=== PATIENT | male | born 1950 | race Caucasian/White ===

== ENCOUNTER 2017-10-08 08:32 | Inpatient (IN) | payer MEDICARE ==
[~2017-10-08] VITALS: Ht 190.5 cm; Wt 101.0 kg
[2017-10-08] MEDS ORDERED: SODIUM CHLORIDE FLUSH 10ML SYR IVF ONE (10:00)
[2017-10-08] MEDS ORDERED: ALBU18HF INH (10:03)
[2017-10-08] MEDS ORDERED: FLUT1DIS3 INH (10:03)
[2017-10-08 10:12] LABS: BASOPHILS # (AUTO) 0.05 x10^3/uL (0-0.1); BASOPHILS % (AUTO) 1 % (0-1); EOSINOPHILS # (AUTO) 0.15 x10^3/uL (0-0.4); EOSINOPHILS % (AUTO) 2 % (1-7); LYMPHOCYTES # (AUTO) 1.06 x10^3/uL (1-3.4); LYMPHOCYTES % (AUTO) 14 % (22-44); MD NO; MEAN CORPUSCULAR HEMOGLOBIN 30.7 pg (27.5-34.5); MEAN CORPUSCULAR HGB CONC 33.2 g/dL (33.2-36.2); MEAN CORPUSCULAR VOLUME 92.3 fL (81-97); MONOCYTES # (AUTO) 0.53 x10^3/uL (0.2-0.8); MONOCYTES % (AUTO) 7 % (2-9); NEUTROPHILS % (AUTO) 77 % (42-75); PLATELET COUNT 195 x10^3/uL (130-400); RED BLOOD COUNT 5.91 x10^6/uL (4.38-5.82)
[2017-10-08 10:22] LABS: INTERNATIONAL NORMALIZED RATIO 1.34 (0.93-1.1)
[2017-10-08 10:25] LABS: ALANINE AMINOTRANSFERASE 31 U/L (12-78); ANION GAP 10 mmol/L (5-15); CALCIUM 8.2 mg/dL (8.5-10.1); CHLORIDE 105 mmol/L (98-107); CREATININE 1.43 mg/dL (0.7-1.3)
[2017-10-08 10:30] LABS: ALKALINE PHOSPHATASE 181 U/L (45-117); BILIRUBIN,TOTAL 2.9 mg/dL (0.2-1.0); FREE T4 (FREE THYROXINE) 1.42 ng/dL (0.76-1.46); TOTAL PROTEIN 6.7 g/dL (6.4-8.2); TROPONIN I < 0.015 ng/mL (0.000-0.045)
[2017-10-08 10:43] LABS: PROTHROMBIN TIME 13.9 Seconds (9.6-11.5)
[2017-10-08] MEDS ORDERED: FUROSEMIDE 40 MG/4 ML ONE (12:27)
[2017-10-08] MEDS ORDERED: FUROSEMIDE 40 MG/4 ML IVPush ONE (12:30)
[2017-10-08] MEDS ORDERED: ONDANSETRON ODT 4 MG PO PRN (15:00)
[2017-10-08] MEDS ORDERED: ONDANSETRON 2MG/ML, 2ML IVPush PRN (15:00)
[2017-10-08] MEDS: INSULIN ASPART 100 UNITS/ML, PEN SQ-INSULIN SCH ×2 (16:00→20:34)
[2017-10-08 16:03] LABS: CHLORIDE,URINE RANDOM 109 mmol/L; CULTURE INDICATED? NO; MICROSCOPIC NOT IND; POTASSIUM,URINE RANDOM 22 mmol/L; SODIUM,URINE RANDOM 95 mmol/L
[2017-10-08 16:08] VITALS: BP 137/83
[2017-10-08] MEDS ORDERED: LIDOCAINE 1%, 20ML ONE (16:19)
[2017-10-08 16:31] LABS: HEMOGLOBIN A1C 7.4 % (4.2-6.3)
[2017-10-08 16:34] LABS: FREE T4 (FREE THYROXINE) 1.35 ng/dL (0.76-1.46); THYROID STIMULATING HORMONE 3.14 mIU/L (0.358-3.740)
[2017-10-08] MEDS: FUROSEMIDE 40 MG/4 ML IV SCH (17:27)
[2017-10-08 18:19] LABS: CELLS COUNTED 41
[2017-10-08] MEDS: HEPARIN 5,000 UNITS/ML, 1ML SQ SCH (18:19)
[2017-10-08 20:02] VITALS: BP 120/66
[2017-10-08] MEDS ORDERED: ALBUTEROL SULFATE 2.5 MG/3 ML NPPB PRN (22:00)
[2017-10-09 02:30] VITALS: BP 134/87
[2017-10-09] MEDS: HEPARIN 5,000 UNITS/ML, 1ML SQ SCH ×3 (02:54→20:45)
[2017-10-09 06:28] LABS: BASOPHILS # (AUTO) 0.03 x10^3/uL (0-0.1); BASOPHILS % (AUTO) 1 % (0-1); EOSINOPHILS # (AUTO) 0.22 x10^3/uL (0-0.4); EOSINOPHILS % (AUTO) 3 % (1-7); LYMPHOCYTES # (AUTO) 1.42 x10^3/uL (1-3.4); LYMPHOCYTES % (AUTO) 19 % (22-44); MD NO; MEAN CORPUSCULAR HEMOGLOBIN 31.1 pg (27.5-34.5); MEAN CORPUSCULAR HGB CONC 33.3 g/dL (33.2-36.2); MEAN CORPUSCULAR VOLUME 93.3 fL (81-97); MEAN PLATELET VOLUME 9.5 fL (7.4-10.4); MONOCYTES # (AUTO) 0.65 x10^3/uL (0.2-0.8); MONOCYTES % (AUTO) 9 % (2-9); NEUTROPHILS # (AUTO) 5.28 x10^3/uL (1.8-6.8); NEUTROPHILS % (AUTO) 70 % (42-75); PLATELET COUNT 183 x10^3/uL (130-400); RED BLOOD COUNT 5.82 x10^6/uL (4.38-5.82); RED CELL DISTRIBUTION WIDTH 14.9 % (9.4-14.8)
[2017-10-09 06:33] LABS: INTERNATIONAL NORMALIZED RATIO 1.36 (0.93-1.1); PROTHROMBIN TIME 14.1 Seconds (9.6-11.5)
[2017-10-09 06:39] LABS: ANION GAP 10 mmol/L (5-15); CALCIUM 8.4 mg/dL (8.5-10.1); CHLORIDE 105 mmol/L (98-107)
[2017-10-09 06:43] LABS: ALANINE AMINOTRANSFERASE 30 U/L (12-78); ALKALINE PHOSPHATASE 187 U/L (45-117); BILIRUBIN,TOTAL 2.6 mg/dL (0.2-1.0); CHOL/HDL RATIO 3.7; CHOLESTEROL, TOTAL 127 mg/dL (140-239); CREATININE 1.58 mg/dL (0.7-1.3); HDL CHOL % 27 % (26-37); HDL CHOLESTEROL (DIRECT) 34 mg/dL (40-60); LDL CHOLESTEROL,CALCULATED 77 mg/dL (54-169); LDL/HDL RATIO 2.3 (0.5-3.0); TOTAL PROTEIN 7.1 g/dL (6.4-8.2); TRIGLYCERIDES 79 mg/dL (50-200); VLDL CHOLESTEROL 16 mg/dL (0-25)
[2017-10-09] MEDS: INSULIN ASPART 100 UNITS/ML, PEN SQ-INSULIN SCH ×4 (07:00→20:42)
[2017-10-09 07:47] VITALS: BP 111/73
[2017-10-09] MEDS: POTASSIUM CHLORIDE 20 MEQ TAB.ER.PRT PO SCH (10:17)
[2017-10-09] MEDS: FUROSEMIDE 40 MG/4 ML IV SCH ×3 (10:18→22:48)
[2017-10-09 13:05] VITALS: BP 100/64
[2017-10-09 19:50] VITALS: BP 115/70
[2017-10-09] MEDS: SPIRONOLACTONE 50 MG TABLET PO SCH (20:45)
[2017-10-10 02:58] VITALS: BP 105/68
[2017-10-10] MEDS: HEPARIN 5,000 UNITS/ML, 1ML SQ SCH ×3 (05:11→22:00)
[2017-10-10] MEDS: INSULIN ASPART 100 UNITS/ML, PEN SQ-INSULIN SCH ×4 (07:00→21:00)
[2017-10-10 07:20] VITALS: BP 148/98
[2017-10-10 07:41] LABS: BASOPHILS # (AUTO) 0.07 x10^3/uL (0-0.1); BASOPHILS % (AUTO) 1 % (0-1); EOSINOPHILS # (AUTO) 0.33 x10^3/uL (0-0.4); EOSINOPHILS % (AUTO) 5 % (1-7); LYMPHOCYTES # (AUTO) 1.36 x10^3/uL (1-3.4); LYMPHOCYTES % (AUTO) 19 % (22-44); MD NO; MEAN CORPUSCULAR HGB CONC 33.4 g/dL (33.2-36.2); MEAN PLATELET VOLUME 8.9 fL (7.4-10.4); MONOCYTES # (AUTO) 0.65 x10^3/uL (0.2-0.8); MONOCYTES % (AUTO) 9 % (2-9); NEUTROPHILS # (AUTO) 4.76 x10^3/uL (1.8-6.8); NEUTROPHILS % (AUTO) 66 % (42-75); PLATELET COUNT 184 x10^3/uL (130-400); RED BLOOD COUNT 5.92 x10^6/uL (4.38-5.82); RED CELL DISTRIBUTION WIDTH 15.2 % (9.4-14.8)
[2017-10-10 07:53] LABS: ALANINE AMINOTRANSFERASE 32 U/L (12-78); ALBUMIN 3.1 g/dL (3.4-5.0); ANION GAP 9 mmol/L (5-15); CALCIUM 9.2 mg/dL (8.5-10.1); CHLORIDE 102 mmol/L (98-107); CREATININE 1.66 mg/dL (0.7-1.3)
[2017-10-10 07:56] LABS: ALKALINE PHOSPHATASE 212 U/L (45-117); BILIRUBIN,TOTAL 1.9 mg/dL (0.2-1.0); TOTAL PROTEIN 7.3 g/dL (6.4-8.2)
[2017-10-10] MEDS: SPIRONOLACTONE 50 MG TABLET PO SCH ×2 (09:43→21:59)
[2017-10-10] MEDS: POTASSIUM CHLORIDE 20 MEQ TAB.ER.PRT PO SCH (09:43)
[2017-10-10 14:17] VITALS: BP 117/73
[2017-10-10 19:04] VITALS: BP 131/68
[2017-10-10] MEDS ORDERED: FLUT9.9S NAS (21:13)
[2017-10-10] MEDS: FUROSEMIDE 40 MG/4 ML IV SCH (21:59)
[2017-10-11 01:21] VITALS: BP 143/75
[2017-10-11] MEDS: HEPARIN 5,000 UNITS/ML, 1ML SQ SCH ×3 (06:14→20:48)
[2017-10-11] MEDS: INSULIN ASPART 100 UNITS/ML, PEN SQ-INSULIN SCH (07:00)
[2017-10-11] MEDS: FUROSEMIDE 40 MG/4 ML IV SCH ×3 (08:04→20:48)
[2017-10-11] MEDS: SPIRONOLACTONE 50 MG TABLET PO SCH ×2 (08:05→20:47)
[2017-10-11] MEDS: POTASSIUM CHLORIDE 20 MEQ TAB.ER.PRT PO SCH (08:05)
[2017-10-11 08:58] VITALS: BP 123/75
[2017-10-11 14:43] VITALS: BP 109/70
[2017-10-11 20:56] VITALS: BP 120/73
[2017-10-12 01:07] VITALS: BP 114/80
[2017-10-12] MEDS: HEPARIN 5,000 UNITS/ML, 1ML SQ SCH ×3 (05:01→20:38)
[2017-10-12 05:33] LABS: BASOPHILS # (AUTO) 0.04 x10^3/uL (0-0.1); BASOPHILS % (AUTO) 1 % (0-1); EOSINOPHILS # (AUTO) 0.37 x10^3/uL (0-0.4); EOSINOPHILS % (AUTO) 5 % (1-7); LYMPHOCYTES # (AUTO) 1.25 x10^3/uL (1-3.4); LYMPHOCYTES % (AUTO) 17 % (22-44); MD NO; MEAN CORPUSCULAR HEMOGLOBIN 30.7 pg (27.5-34.5); MEAN CORPUSCULAR VOLUME 93.3 fL (81-97); MEAN PLATELET VOLUME 9.3 fL (7.4-10.4); MONOCYTES # (AUTO) 0.68 x10^3/uL (0.2-0.8); MONOCYTES % (AUTO) 9 % (2-9); NEUTROPHILS # (AUTO) 4.97 x10^3/uL (1.8-6.8); NEUTROPHILS % (AUTO) 68 % (42-75); PLATELET COUNT 196 x10^3/uL (130-400); RED BLOOD COUNT 5.71 x10^6/uL (4.38-5.82); RED CELL DISTRIBUTION WIDTH 14.8 % (9.4-14.8)
[2017-10-12 05:39] LABS: CHLORIDE 101 mmol/L (98-107)
[2017-10-12 05:46] LABS: ALANINE AMINOTRANSFERASE 30 U/L (12-78); ALKALINE PHOSPHATASE 201 U/L (45-117); ANION GAP 8 mmol/L (5-15); BILIRUBIN,TOTAL 2.4 mg/dL (0.2-1.0); CALCIUM 8.6 mg/dL (8.5-10.1); CREATININE 1.62 mg/dL (0.7-1.3); TOTAL PROTEIN 7.1 g/dL (6.4-8.2)
[2017-10-12 09:24] VITALS: BP 106/70
[2017-10-12] MEDS: FUROSEMIDE 40 MG/4 ML IV SCH ×3 (09:53→20:38)
[2017-10-12] MEDS: SPIRONOLACTONE 50 MG TABLET PO SCH ×2 (09:53→20:38)
[2017-10-12] MEDS: POTASSIUM CHLORIDE 20 MEQ TAB.ER.PRT PO SCH (09:53)
[2017-10-12 16:14] VITALS: BP 127/84
[2017-10-12 20:53] VITALS: BP 132/91
[2017-10-13 01:37] VITALS: BP 149/97
[2017-10-13] MEDS: HEPARIN 5,000 UNITS/ML, 1ML SQ SCH ×2 (04:17→13:00)
[2017-10-13 05:09] LABS: BASOPHILS # (AUTO) 0.07 x10^3/uL (0-0.1); BASOPHILS % (AUTO) 1 % (0-1); EOSINOPHILS # (AUTO) 0.27 x10^3/uL (0-0.4); EOSINOPHILS % (AUTO) 4 % (1-7); LYMPHOCYTES # (AUTO) 1.29 x10^3/uL (1-3.4); LYMPHOCYTES % (AUTO) 17 % (22-44); MD NO; MEAN CORPUSCULAR HEMOGLOBIN 31.1 pg (27.5-34.5); MEAN CORPUSCULAR HGB CONC 33.4 g/dL (33.2-36.2); MEAN CORPUSCULAR VOLUME 93.1 fL (81-97); MEAN PLATELET VOLUME 9.5 fL (7.4-10.4); MONOCYTES # (AUTO) 0.69 x10^3/uL (0.2-0.8); MONOCYTES % (AUTO) 9 % (2-9); NEUTROPHILS # (AUTO) 5.52 x10^3/uL (1.8-6.8); NEUTROPHILS % (AUTO) 71 % (42-75); PLATELET COUNT 170 x10^3/uL (130-400); RED BLOOD COUNT 5.68 x10^6/uL (4.38-5.82); RED CELL DISTRIBUTION WIDTH 14.9 % (9.4-14.8)
[2017-10-13 05:20] LABS: CHLORIDE 101 mmol/L (98-107)
[2017-10-13 05:29] LABS: ALBUMIN 2.9 g/dL (3.4-5.0); ANION GAP 9 mmol/L (5-15); CALCIUM 8.9 mg/dL (8.5-10.1); CREATININE 1.68 mg/dL (0.7-1.3)
[2017-10-13 07:58] VITALS: BP 125/77
[2017-10-13] MEDS ORDERED: FUROSEMIDE 40 MG/4 ML IV SCH (09:00)
[2017-10-13] MEDS: POTASSIUM CHLORIDE 20 MEQ TAB.ER.PRT PO SCH (10:01)
[2017-10-13] MEDS: SPIRONOLACTONE 50 MG TABLET PO SCH (10:01)
[2017-10-13] MEDS ORDERED: ASPI-621 PO (12:05)
[2017-10-13] MEDS ORDERED: SPIR50TA PO (12:05)
[2017-10-13] MEDS ORDERED: ATOR20TA9 PO (12:05)
[2017-10-13] MEDS ORDERED: FURO40TA6 PO (12:05)
[2017-10-13] MEDS ORDERED: POTA20PA25 PO (12:06)
[2017-10-13 13:08] LABS: ANION GAP 10 mmol/L (5-15); CHLORIDE 103 mmol/L (98-107)
[2017-10-13 13:09] LABS: CREATININE 1.66 mg/dL (0.7-1.3)
== END 2017-10-13 17:47 | disposition home or self-care (01) | DRG 682 ==
LOC: ED 10:13 → EDIP 12:25 → 4WST 15:34
PROVIDERS: ADMIT Hospitalist; ATTEND Hospitalist
PROC: 0W9G3ZZ Drainage of Peritoneal Cavity, Percutaneous Approach (ICD-10-PCS; principal; 2017-10-08)
DX: N17.0 Acute kidney failure with tubular necrosis (principal); J96.01 Acute respiratory failure with hypoxia; I11.0 Hypertensive heart disease with heart failure; I27.21 Secondary pulmonary arterial hypertension; D68.9 Coagulation defect, unspecified; E11.51 Type 2 diabetes mellitus with diabetic peripheral angiopathy without gangrene; I50.810 Right heart failure, unspecified; R18.8 Other ascites; I27.81 Cor pulmonale (chronic); E78.5 Hyperlipidemia, unspecified; K72.90 Hepatic failure, unspecified without coma; K76.1 Chronic passive congestion of liver; K70.30 Alcoholic cirrhosis of liver without ascites; I77.1 Stricture of artery; Z87.891 Personal history of nicotine dependence; Z79.84 Long term (current) use of oral hypoglycemic drugs; Z91.14 Patient's other noncompliance with medication regimen; Z91.19 Patient's noncompliance with other medical treatment and regimen
CPT/HCPCS: 36415; 49083; 71045; 76700; 80048; 80053; 80061; 81003; 82040; 82042; 82140; 82436; 82570; 82945; 82962; 82977; 83036; 83615; 83735; 83880; 84100; 84133; 84157; 84300; 84439; 84443; 84484; 85025; 85610; 85730; 86704; 86706; 86708; 86803; 87070; 87205; 87340; 88112; 89051; 93005; 93306; 93922; 93925; 96374; J1644; J1940; J3490

== ENCOUNTER 2017-11-16 10:26 | Observation (INO) | payer MEDICARE ==
[~2017-11-16] VITALS: Ht 190.5 cm; Wt 92.2 kg
[~2017-11-16 10:26] MED LIST: ALBU18HF INH; ASPI-621 PO; ATOR20TA9 PO; FLUT1DIS3 INH; FLUT9.9S NAS; FURO40TA6 PO; POTA20PA25 PO; SPIR50TA PO
[2017-11-16] MEDS ORDERED: SODIUM CHLORIDE 0.9% 1,000 ML IV ONE (11:11)
[2017-11-16 11:20] VITALS: BP 169/118
[2017-11-16] MEDS ORDERED: DIPHENHYDRAMINE 50 MG/ML, 1ML IVPush ONE (11:30)
[2017-11-16] MEDS ORDERED: PLEASE ENTER HEIGHT AND WEIGHT MC SCH (12:00)
[2017-11-16] MEDS ORDERED: FURO20TA3 PO (12:02)
[2017-11-16] MEDS ORDERED: SPIR50TA2 PO (12:02)
[2017-11-16] MEDS ORDERED: GLIM2TAB2 PO (12:02)
[2017-11-16] MEDS ORDERED: POTA10TA5 PO (12:02)
[2017-11-16] MEDS ORDERED: DIPHENHYDRAMINE 50 MG/ML, 1ML ONE (12:24)
[2017-11-16] MEDS ORDERED: MIDAZOLAM 1 MG/ML, 2ML ONE (13:37)
[2017-11-16] MEDS ORDERED: FENTANYL PF 100 MCG/2ML ONE (13:37)
[2017-11-16] MEDS ORDERED: LIDOCAINE 2%, 20ML ONE (13:37)
[2017-11-16] MEDS ORDERED: VERAPAMIL 2.5 MG/ML, 2ML ONE (14:07)
[2017-11-16] MEDS ORDERED: ADENOSINE IV PRN (15:00)
[2017-11-16] MEDS ORDERED: SODIUM CHLORIDE 0.9% IV PRN (15:00)
[2017-11-16] MEDS: SODIUM CHLORIDE 0.9% 1,000 ML IV SCH ×2 (15:10→23:10)
[2017-11-16] MEDS ORDERED: LISI-170 PO (16:08)
[2017-11-16] MEDS: LISINOPRIL 20 MG TABLET PO SCH ×2 (16:16→20:33)
[2017-11-16] MEDS: LABETALOL 5MG/ML, 20ML IVPush ONE ×2 (16:33→17:09)
[2017-11-16 19:47] VITALS: BP 138/86
[2017-11-17 00:22] VITALS: BP 110/69
[2017-11-17] MEDS: SODIUM CHLORIDE 0.9% 1,000 ML IV SCH (05:21)
[2017-11-17 07:57] VITALS: BP 129/71
[2017-11-17] MEDS: LISINOPRIL 20 MG TABLET PO SCH (08:05)
== END 2017-11-17 10:53 | disposition home or self-care (01) ==
LOC: CACL 10:26 → 5SO 15:49 → CACL 20:57 → 5SO 20:58
PROVIDERS: ADMIT Internal Medicine Cardiovascular Disease; ATTEND Internal Medicine Cardiovascular Disease
DX: I25.82 Chronic total occlusion of coronary artery (principal); I25.10 Atherosclerotic heart disease of native coronary artery without angina pectoris; E78.5 Hyperlipidemia, unspecified; I10 Essential (primary) hypertension; I27.0 Primary pulmonary hypertension; E78.2 Mixed hyperlipidemia; F17.221 Nicotine dependence, chewing tobacco, in remission; R60.9 Edema, unspecified
CPT/HCPCS: 36415; 83880; 93460; 93463; 96374; 96375; 99156; 99157; C1894; G0378; J1200; J2250; J3010; J3490; Q9967